=== PATIENT | female | born 1945 | race Caucasian/White ===

== ENCOUNTER → 2017-07-11 | Outpatient (CLI) | payer OTHER, MEDICAID | LOC: FIMAGING 15:28 | PROVIDERS: ATTEND Physical Medicine & Rehabilitation | DX: M99.73 Connective tissue and disc stenosis of intervertebral foramina of lumbar region (principal); M89.38 Hypertrophy of bone, other site ==

== ENCOUNTER 2019-02-05 16:10 | Emergency (ER) | payer OTHER, MEDICAID ==
[2019-02-05] MEDS ORDERED: NS 1,000 ML IV ONE (16:36)
--- NOTE | 2019-02-05 16:36 | EDPHY ---
H & P Stated Complaint: abd/pelvic pain Time Seen by Provider: 02/05/19 16:34 HPI/ROS: CHIEF COMPLAINT: Pelvic pain, possible hematuria and hematochezia HISTORY OF PRESENT ILLNESS: The patient presents the ED with complaints of lower pelvic pain increasing over the past day with possible hematuria and mild hematochezia. Patient reports she has also been suffering from migraine headache which has fairly typical for the patient and more less has resolved. The patient does have a prior surgical history no worthy for appendectomy and hernia repair. The patient does report associated nausea. The patient believes she may have a prior history of diverticulitis. The patient reports that her pain is mild to moderate in nature and worsened with deep palpation. REVIEW OF SYSTEMS: A comprehensive 10 point review of systems is otherwise negative aside from elements mentioned in the history of present illness. Source: Patient - Personal History Current Tetanus/Diphtheria Vaccine: Yes Current Tetanus Diphtheria and Acellular Pertussis (TDAP): Yes - Medical/Surgical History Hx Asthma: Yes Hx Chronic Respiratory Disease: No Hx Diabetes: No Hx Cardiac Disease: Yes Hx Renal Disease: No Hx Cirrhosis: No Hx Alcoholism: No Hx HIV/AIDS: No Hx Splenectomy or Spleen Trauma: No Other PMH: appendectomy, tonsillectomy, inguinal hernia repair, DNC, hypothyroidism, high cholesterol, diverticuluitis, HTN - Family History Significant Family History: No pertinent family hx - Social History Smoking Status: Former smoker - Physical Exam Exam: General Appearance: Alert, no distress Eyes: Pupils equal and round no pallor or injection ENT, Mouth: Mucous membranes moist Respiratory: There are no retractions, lungs are clear to auscultation Cardiovascular: Regular rate and rhythm Gastrointestinal: Suprapubic tenderness to palpation, no peritoneal signs, no rebound or guarding appreciated Neurological: A&O, normal motor function, normal sensory exam, normal cranial nerves Skin: Warm and dry, no rashes Musculoskeletal: Neck is supple nontender Extremities: symmetrical, full range of motion Constitutional: Initial Vital Signs Temperature (C) 36.7 C 02/05/19 16:25 Heart Rate 100 02/05/19 16:25 Respiratory Rate 16 02/05/19 16:25 Blood Pressure 178/134 H 02/05/19 16:25 O2 Sat (%) 92 02/05/19 16:25 O2 Delivery Mode Room Air Allergies/Adverse Reactions: No Known Allergies Allergy (Unverified 02/05/19 16:23) Home Medications: Medication Instructions Recorded Calcium Carbonate [Calcium] 500 mg PO DAILY 02/04/16 Cholecalciferol Vit D3 [Vitamin D3 1,000 units PO DAILY 02/04/16 (*)] Fluoxetine HCl [Prozac 40 mg] 40 mg PO HS 02/04/16 LORazepam [Ativan (*)] 1 mg PO BID 02/04/16 Levothyroxine [Synthroid 25 mcg 25 mcg PO DAILY06 02/04/16 (*)] Losartan Potassium [Cozaar 50 mg 100 mg PO DAILY 02/04/16 (*)] amLODIPine BESYLATE [Norvasc 5 mg 5 mg PO DAILY 02/04/16 (*)] Acetaminophen [Tylenol 325mg (*)] 650 mg PO Q6 PRN #0 tab 02/07/16 Hydrocodone/APAP 5/325 [[place] 1 - 2 each PO Q6 PRN #20 tab 02/05/19 5/325] Ondansetron Odt [Zofran Odt] 4 mg PO Q4PRN PRN #20 tab 02/05/19 levOFLOXACIN [Levaquin] 500 mg PO DAILY #10 tab 02/05/19 metroNIDAZOLE [Flagyl 500 mg (RX)] 500 mg PO TID #30 tab 02/05/19 Medical Decision Making - Diagnostics Imaging Results: Imaging Impressions Abdomen CT 02/05/19 16:54 Impression: 1. Recurrent sigmoid colon diverticulitis, with no mechanical obstruction, pericolonic abscess, or pneumoperitoneum. 2. Stable appearance of a right ovarian cyst, compared to 2016. Continued annual surveillance is warranted. 3. Nonobstructive left nephrolithiasis and simple-appearing right renal cortical cyst. 4. Vhizzcgk-[id number] sized hiatal hernia. 5. 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 As clinically indicated, consider obtaining a 24 hour urinary free cortisol or a dexamethasone suppression test, 24 hour urinary metanephrines and catecholamines, and if hypertensive, plasma aldosterone and plasma renin levels. Findings and recommendations were discussed with Martín Gee MD at 17:54 , on 02/05/2019. ED Course/Re-evaluation: Patient presents the ED for evaluation of acute lower abdominal pain. She does have a prior history of diverticulitis. She was noted to have tenderness to deep palpation noted in the suprapubic region. The patient was taken for CT scan of the abdomen pelvis which does demonstrate diverticulitis. There is no evidence of a perforation or obstruction. She also has pyuria but this may be secondary to bladder irritation. The patient is nontoxic well-appearing. The remainder of her laboratory studies are unremarkable. The patient was offered observation in the hospital this evening verses discharged home. The patient prefers to be treated as an outpatient. She will be given a prescription for Levaquin and Flagyl. She is also given pain medications, antinausea medications and customary aftercare instructions and return precautions. Patient was reexamined at discharge at 7:00 p.m. And is nontoxic and well- appearing. Her abdominal examination remains benign. Patient has been informed of the presence of a right ovarian cyst which warrants further observation as an outpatient. Differential Diagnosis: Differential diagnosis considered includes perforation, obstruction, diverticulitis, pyelonephritis - Data Points Laboratory Results: Laboratory Results 02/05/19 16:35 02/05/19 02/05/19 02/05/19 17:35 16:43 16:35 WBC 14.75 10^3/uL H 10^3/uL (3.80-9.50) RBC 5.10 10^6/uL 10^6/uL (4.18-5.33) Hgb 15.7 g/dL g/dL (12.6-16.3) POC Hgb 16.3 gm/dL gm/dL (12.6-16.3) Hct 47.0 % % (38.0-47.0) POC Hct 48 % H % (38-47) MCV 92.2 fL fL (81.5-99.8) MCH 30.8 pg pg (27.9-34.1) MCHC 33.4 g/dL g/dL (32.4-36.7) RDW 14.8 % % (11.5-15.2) Plt Count 351 10^3/uL 10^3/uL (150-400) MPV 9.3 fL fL (8.7-11.7) Neut % (Auto) 76.3 % H % (39.3-74.2) Lymph % (Auto) 15.4 % % (15.0-45.0) [place] % (Auto) 6.3 % % (4.5-13.0) Eos % (Auto) 1.1 % % (0.6-7.6) Baso % (Auto) 0.5 % % (0.3-1.7) Nucleat RBC Rel Count 0.0 % % (0.0-0.2) Absolute Neuts (auto) 11.26 10^3/uL H 10^3/uL (1.70-6.50) Absolute Lymphs (auto) 2.27 10^3/uL 10^3/uL (1.00-3.00) Absolute Monos (auto) 0.93 10^3/uL H 10^3/uL (0.30-0.80) Absolute Eos (auto) 0.16 10^3/uL 10^3/uL (0.03-0.40) Absolute Basos (auto) 0.07 10^3/uL 10^3/uL (0.02-0.10) Absolute Nucleated RBC 0.00 10^3/uL 10^3/uL (0-0.01) Immature Gran % 0.4 % % (0.0-1.1) Immature Gran # 0.06 10^3/uL 10^3/uL (0.00-0.10) POC Sodium 144 mEq/L mEq/L (135-145) POC Potassium 3.1 mEq/L L mEq/L (3.3-5.0) POC Chloride 101 mEq/L mEq/L (97-110) POC Total CO2 29 mEq/L mEq/L (22-31) POC BUN 12 mg/dL mg/dL (7-23) POC Creatinine 1.2 mg/dL H mg/dL (0.6-1.0) POC Glucose 126 mg/dL H mg/dL (70-100) Urine Color YELLOW Urine Appearance HAZY Urine pH 6.0 (5.0-7.5) Ur Specific Story 1.026 (1.002-1.030) Urine Protein NEGATIVE (NEGATIVE) Urine Ketones NEGATIVE (NEGATIVE) Urine Blood NEGATIVE (NEGATIVE) Urine Nitrate NEGATIVE (NEGATIVE) Urine Bilirubin NEGATIVE (NEGATIVE) Urine Urobilinogen NEGATIVE EU EU (0.2-1.0) Ur Leukocyte Esterase 1+ H (NEGATIVE) Urine RBC NONE SEEN /hpf /hpf (0-3) Urine WBC 25-50 /hpf H /hpf (0-3) Ur Epithelial Cells TRACE /lpf /lpf (NONE-1+) Hyaline Casts 1-5 /lpf /lpf (0-1) Urine Mucus TRACE /lpf /lpf (NONE-1+) Urine Glucose NEGATIVE (NEGATIVE) Medications Given: Discontinued Medications Sodium Chloride (Ns) 1,000 mls @ 0 mls/hr IV EDNOW ONE; Wide Open PRN Reason: Protocol Stop: 02/05/19 16:37 Last Admin: 02/05/19 16:41 Dose: 1,000 mls Morphine Sulfate (Morphine) 4 mg IVP EDNOW ONE Stop: 02/05/19 16:43 Last Admin: 02/05/19 16:45 Dose: 4 mg Ondansetron HCl (Zofran) 4 mg IVP EDNOW ONE Stop: 02/05/19 16:43 Last Admin: 02/05/19 16:45 Dose: 4 mg Point of Care Test Results: Chemistry 02/05/19 16:43 POC Sodium 144 mEq/L mEq/L (135-145) POC Potassium 3.1 mEq/L L mEq/L (3.3-5.0) POC Chloride 101 mEq/L mEq/L (97-110) POC Total CO2 29 mEq/L mEq/L (22-31) POC BUN 12 mg/dL mg/dL (7-23) POC Creatinine 1.2 mg/dL H mg/dL (0.6-1.0) POC Glucose 126 mg/dL H mg/dL (70-100) ISTAT H&H 02/05/19 16:43 POC Hgb 16.3 gm/dL gm/dL (12.6-16.3) POC Hct 48 % H % (38-47) Departure - Departure Disposition: Home, Routine, Self-Care Clinical Impression: Sigmoid diverticulitis Condition: Good Instructions: Diverticulitis (ED) Additional Instructions: 1. Antibiotics as directed. 2. Pain medications as needed. 3. Zofran as needed for nausea. 4. Please return to the ED immediately for increasing pain, fever or vomiting. 5. Please have Dr. Phillips review the full CT scan results as there are some incidental findings which require further surveillance. Referrals: Radha Phillips MD [Primary Care Provider] - As per Instructions
[2019-02-05] MEDS ORDERED: ONDANSETRON 4 MG/2 ML VIAL IVP ONE (16:42)
[2019-02-05 16:53] LABS: PLATELET COUNT 351 10^3/uL (150-400)
[2019-02-05] MEDS ORDERED: IOPAMIDOL (ISOVUE-300) 100 ML BTL ONE (17:09)
[2019-02-05 19:13] VITALS: BP 168/88
== END 2019-02-05 19:13 | disposition home or self-care (01) ==
DX: K57.32 Diverticulitis of large intestine without perforation or abscess without bleeding (principal); N83.291 Other ovarian cyst, right side; N20.0 Calculus of kidney; N28.1 Cyst of kidney, acquired; E86.9 Volume depletion, unspecified
CPT/HCPCS: 74177; 96374; 96375; 99285; J2270; J2405; Q9967; 82435-PO; 82565-PO; 82947-PO; 84132-PO; 84295-PO; 84520-PO; 85014-ER